=== PATIENT | male | born 1970 | race Caucasian/White ===

== ENCOUNTER 2018-08-31 10:32 | Inpatient (IN) | payer OTHER | END 2018-09-03 09:30 | disposition home or self-care (01) | LOC: YASAS 10:32 → Y6N 14:58 ==

== ENCOUNTER 2019-02-13 13:57 | Inpatient (IN) | payer OTHER ==
[2019-02-13 16:14] VITALS: BMI 22.4
--- NOTE | 2019-02-13 18:47 | HP ---
CIWA Score - Admission Criteria [facility]ASAS Guidelines: Admission for Medically Managed Detox: Requires at least one of the followin. CIWA greater than 12 2. Seizures within the past 24 hours 3. Delirium tremens within the past 24 hours 4. Hallucinations within the past 24 hours 5. Acute intervention needed for co occurring medical disorder 6. Acute intervention needed for co occurring psychiatric disorder 7. Severe withdrawal that cannot be handled at a lower level of care (continued vomiting, continued diarrhea, abnormal vital signs) requiring intravenous medication and/or fluids 8. Admitting History and Physical - Smoking History Smoking history: Current every day smoker Have you smoked in the past 12 months: Yes Aproximately how many cigarettes per day: 10 - Alcohol/Substance Use Hx Alcohol Use: No Admission ROS BHS - HPI Chief Complaint: cocaine use- here for rehab Allergies/Adverse Reactions: Allergies Allergy/AdvReac Type Severity Reaction Status Date / Time No Known Allergies Allergy Verified 02/13/19 16:07 History of Present Illness: 48 yo with no med problems, was last here about 4 months ago- detoxed from heroin and is now in a [facility]. Pt left for [facility]ia [facility] and when he returned to rehab- tox test pos for heroin and cocaine. pt was asked to come for detox and rehab. Pt only has cocaine in his urine today. Offered subxone treatment- pt refused, stating that he will get this at his rehab facility. the condition for being accepted back to his rehab is completion of rehab here. DUR_ no controlled substances - Ebola screening Have you traveled outside of the country in the last 21 days: No Have you had contact with anyone from an Ebola affected area: No Do you have a fever: No - Review of Systems Constitutional: No Symptoms Reported EENT: reports: No Symptoms Reported Respiratory: reports: No Symptoms reported Cardiac: reports: No Symptoms Reported GI: reports: No Symptoms Reported : reports: No Symptoms Reported Musculoskeletal: reports: No Symptoms Reported Integumentary: reports: No Symptoms Reported Neuro: reports: No Symptoms reported Endocrine: reports: No Symptoms Reported Hematology: reports: No Symptoms Reported Psychiatric: reports: No Sypmtoms Reported Other Systems: Reviewed and Negative Patient History - Patient Medical History Hx Anemia: No Hx Asthma: No Hx Chronic Obstructive Pulmonary Disease (COPD): No Hx Cancer: No Hx Cardiac Disorders: No Hx Congestive Heart Failure: No Hx Hypertension: No Hx Hypercholesterolemia: No Hx Pacemaker: No HX Cerebrovascular Accident: No Hx Seizures: No Hx Dementia: No Hx Diabetes: No Hx Gastrointestinal Disorders: No Hx Liver Disease: No Hx Genitourinary Disorders: No Hx Sexually Transmitted Disorders: No Hx Renal Disease (ESRD): No Hx Thyroid Disease: No Hx Human Immunodeficiency Virus (HIV): No (last 07/28/18 negative) Hx Hepatitis C: No Hx Depression: No Hx Suicide Attempt: No Hx Bipolar Disorder: No Hx Schizophrenia: No - Patient Surgical History Past Surgical History: No Hx Neurologic Surgery: Yes (Fractured skull at 2 years old) Hx Cataract Extraction: No Hx Cardiac Surgery: No Hx Lung Surgery: No Hx Breast Surgery: No Hx Breast Biopsy: No Hx Abdominal Surgery: No Hx Appendectomy: No Hx Cholecystectomy: No Hx Genitourinary Surgery: No Hx Section: No Hx Orthopedic Surgery: No Anesthesia Reaction: No - Smoking Cessation Smoking history: Current every day smoker Have you smoked in the past 12 months: Yes Aproximately how many cigarettes per day: 6 Cigars Per Day: 0 Hx Chewing Tobacco Use: No Initiated information on smoking cessation: Yes 'Breaking Loose' booklet given: 02/13/19 - Substances abused Heroin Substance route: Inhalation Frequency: Daily Amount used: 1 bags Age of first use: 12 Date of last use: 02/01/19 Admission Physical Exam BHS - Vital Signs Vital Signs: Vital Signs - 24 hr 02/13/19 02/13/19 16:08 17:38 Temperature 97.1 F L 97.1 F L Pulse Rate 71 71 Respiratory 20 20 Rate Blood Pressure 106/72 106/72 - Physical General Appearance: Yes: Within Normal Limits HEENTM: Yes: Within Normal Limits Respiratory: Yes: Within Normal Limits, Lungs Clear Neck: Yes: Within Normal Limits Cardiology: Yes: Within Normal Limits, Regular Rhythm, Regular Rate Abdominal: Yes: Within Normal Limits, Normal Bowel Sounds Genitourinary: Yes: Within Normal Limits Back: Yes: Within Normal Limits Musculoskeletal: Yes: Within Normal Limits Extremities: Yes: Within Normal Limits, Calf Tenderness Integumentary: Yes: Within Normal Limits - Diagnostic (1) Nicotine dependence Current Visit: No Status: Acute (2) Opioid dependence with withdrawal Current Visit: No Status: Acute Breathalyzer - Breathalyzer Breathalyzer: 0 Urine Drug Screen - Test Device Lot number: [id number] Expiration date: 11/07/20 - Control Is test valid?: Yes - Results Drug screen NEGATIVE: No Urine drug screen results: JAIME-Cocaine Inpatient Rehab Admission - Rehab Decision to Admit Inpatient rehab admission?: Yes - Initial Determination Are CD services needed?: Yes Free of communicable disease: Yes Not in need of hospitalization: Yes - Rehab Admission Criteria Previous failed treatment: Yes Poor recovery environment: Yes Comorbidities: Yes Lacks judgement: Yes Patient is meeting Inpatient Rehab admission criteria:: Yes (pt relapsed- currently in jail rehab)
[2019-02-13] MEDS ORDERED: MAG HYDROX/AL HYDROX/SIMETH 30 ML UNIT-DOSE CUP PO PRN (18:51)
[2019-02-13] MEDS ORDERED: MAGNESIUM CITRATE 300 ML BOTTLE PO PRN (18:51)
[2019-02-13] MEDS ORDERED: MAGNESIUM HYDROX 2400MG/30ML ORAL SUSPENSION 30 ML CUP PO PRN (18:51)
[2019-02-13] MEDS ORDERED: LOPERAMIDE HCL 2 MG CAPSULE PO PRN (18:51)
[2019-02-13] MEDS ORDERED: P-EPHED 60MG/TRIPROLIDI 2.5MG TABLET PO PRN (18:51)
[2019-02-13] MEDS ORDERED: guaiFENesin 200 MG/10 ML 10 ML UNIT-DOSE CUPS PO PRN (18:51)
[2019-02-13] MEDS ORDERED: hydrOXYzine PAMOATE 25 MG CAPSULE (FP) PO PRN (18:51)
[2019-02-13] MEDS ORDERED: NICOTINE POLACRILEX 2 MG GUM BC PRN (18:51)
[2019-02-13] MEDS ORDERED: IBUPROFEN 400 MG TABLET (FP) PO PRN (18:51)
[2019-02-13] MEDS ORDERED: MELATONIN 5 MG TABLETS PO PRN (22:00)
[2019-02-13] MEDS: THIAMINE HCL 100 MG TABLET (FP) PO SCH (22:42)
[2019-02-14] MEDS: PRENATAL VITAMINS W/ FOLIC ACID TABLET (FP) PO SCH (10:57)
[2019-02-14 11:55] LABS: HEMATOCRIT 44.2 % (35.4-49); MEAN CELL VOLUME 93.9 fl (80-96); MEAN PLT VOLUME 8.6 fl (7.5-11.1); PLATELET COUNT 209 K/MM3 (134-434); RDW 13.7 % (11.9-15.9); WHITE BLOOD COUNT 7.4 K/mm3 (4.0-10.0)
[2019-02-14] MEDS ORDERED: FLU VACCINE QUAD 60 MCG/0.5 ML (MDV 19-20) IM ONE (12:00)
[2019-02-14] MEDS ORDERED: PNEUMOC 13-VAL CONJ-DIP CRM/PF 0.5 ML DISP.SYRIN IM ONE (12:00)
[2019-02-14] MEDS ORDERED: PNEUMOCOCCAL 23 VACCINE 0.5 ML VIAL IM ONE (12:00)
[2019-02-14 12:02] LABS: ALBUMIN 3.8 g/dl (3.4-5.0); BILIRUBIN,TOTAL 0.4 mg/dL (0.2-1); BLOOD UREA NITROGEN 19.4 mg/dL (7-18); CALCIUM 9.1 mg/dL (8.5-10.1); CREATININE 1.3 mg/dL (0.55-1.3); POTASSIUM 4.4 mmol/L (3.5-5.1)
[2019-02-14 12:06] LABS: URINE APPEARANCE CLOUDY; URINE BILIRUBIN NEGATIVE (NEGATIVE); URINE COLOR YELLOW; URINE GLUCOSE (UA) NEGATIVE (NEGATIVE); URINE KETONE NEGATIVE (NEGATIVE); URINE LEUK ESTERASE NEGATIVE (NEGATIVE); URINE NITRITE NEGATIVE (NEGATIVE); URINE PROTEIN NEGATIVE (NEGATIVE)
--- NOTE | 2019-02-14 14:23 | PN ---
[facility] Progress Note Note: Pt is a 48 y/o male with a hx of WOODROW admitted to rehab from [facility] referred to rehab from his [facility] because "i picked up-used drugs". pt reports he has aprimary care provider Dr. Fagan at [address] [place] [address]. Pt denies PMHx or psych Hx. Vital Signs - 24 hr 02/13/19 02/13/19 02/13/19 16:08 17:38 19:29 Temperature 97.1 F L 97.1 F L 97.8 F Pulse Rate 71 71 67 Respiratory 20 20 18 Rate Blood Pressure 106/72 106/72 131/69 02/14/19 02/14/19 02/14/19 01:15 03:30 07:16 Temperature 97.3 F L Pulse Rate 67 Respiratory 18 18 18 Rate Blood Pressure 104/75 Laboratory Tests 02/14/19 02/14/19 02/14/19 07:55 07:55 08:30 WBC 7.4 RBC 4.70 Hgb 15.0 Hct 44.2 MCV 93.9 MCH 32.0 MCHC 34.0 RDW 13.7 Plt Count 209 MPV 8.6 Sodium 138 Potassium 4.4 Chloride 105 Carbon Dioxide 29 Anion Gap 4 L BUN 19.4 H Creatinine 1.3 Est GFR (CKD-EPI)AfAm 74.78 Est GFR (CKD-EPI)NonAf 64.52 Random Glucose 77 Calcium 9.1 Total Bilirubin 0.4 AST 20 ALT 28 Alkaline Phosphatase 83 Total Protein 7.0 Albumin 3.8 Urine Color Yellow Urine Appearance Cloudy Urine pH 7.0 D Ur Specific [place] 1.026 Urine Protein Negative Urine Glucose (UA) Negative Urine Ketones Negative Urine Blood Negative Urine Nitrite Negative Urine Bilirubin Negative Urine Urobilinogen 1.0 Ur Leukocyte Esterase Negative Alert o x 3 nad oob ambulating with steady gait. extremities/skin:no edema;skin intact A/P new rehab pt Maintain safety increase po fluids continue rehab.
[2019-02-14] MEDS: THIAMINE HCL 100 MG TABLET (FP) PO SCH (22:40)
[2019-02-15] MEDS: PRENATAL VITAMINS W/ FOLIC ACID TABLET (FP) PO SCH (10:56)
[2019-02-15] MEDS: THIAMINE HCL 100 MG TABLET (FP) PO SCH (22:30)
[2019-02-16] MEDS: PRENATAL VITAMINS W/ FOLIC ACID TABLET (FP) PO SCH (10:58)
[2019-02-16] MEDS: THIAMINE HCL 100 MG TABLET (FP) PO SCH (22:06)
[2019-02-17] MEDS: PRENATAL VITAMINS W/ FOLIC ACID TABLET (FP) PO SCH (11:07)
[2019-02-17] MEDS: THIAMINE HCL 100 MG TABLET (FP) PO SCH (22:21)
[2019-02-18] MEDS: MENTHOL/PHENOL 1 EACH UD MM PRN (06:26)
[2019-02-18] MEDS: PRENATAL VITAMINS W/ FOLIC ACID TABLET (FP) PO SCH (10:58)
[2019-02-18] MEDS: THIAMINE HCL 100 MG TABLET (FP) PO SCH (22:06)
[2019-02-19] MEDS: PRENATAL VITAMINS W/ FOLIC ACID TABLET (FP) PO SCH (10:32)
[2019-02-19] MEDS: MENTHOL/PHENOL 1 EACH UD MM PRN (22:10)
[2019-02-19] MEDS: THIAMINE HCL 100 MG TABLET (FP) PO SCH (22:10)
[2019-02-20] MEDS: MENTHOL/PHENOL 1 EACH UD MM PRN (11:55)
[2019-02-20] MEDS: PRENATAL VITAMINS W/ FOLIC ACID TABLET (FP) PO SCH (11:55)
[2019-02-20] MEDS: THIAMINE HCL 100 MG TABLET (FP) PO SCH (22:05)
[2019-02-21] MEDS: PRENATAL VITAMINS W/ FOLIC ACID TABLET (FP) PO SCH (11:04)
[2019-02-21] MEDS: THIAMINE HCL 100 MG TABLET (FP) PO SCH (22:20)
[2019-02-22] MEDS: PRENATAL VITAMINS W/ FOLIC ACID TABLET (FP) PO SCH (11:35)
[2019-02-22] MEDS: THIAMINE HCL 100 MG TABLET (FP) PO SCH (22:36)
[2019-02-23] MEDS: PRENATAL VITAMINS W/ FOLIC ACID TABLET (FP) PO SCH (10:03)
[2019-02-23] MEDS ORDERED: COLLOIDAL OATMEAL 1 BAR EACH TP PRN (12:48)
--- NOTE | 2019-02-23 12:49 | PN ---
[facility] Progress Note Note: Nurse Tiff called to report that pt c/o redness to cheeks,forehead and both shoulders after taking a shower this morning at about 11:00 a.m. Denied swelling to area or pharynx. Pt was seen and states "I take hot showers" and "it 's not there anymore'. Vital Signs - 24 hr 02/23/19 02/23/19 02/23/19 00:30 03:30 07:20 Temperature 97.3 F L Pulse Rate 60 Respiratory 18 18 18 Rate Blood Pressure 106/75 alert o x 3 nad oob ambulating with steady gait. Skin: no swellings, no redness noted. A/P Rehab patient c/o unspecified redness-not seen. Maintain safety
[2019-02-23] MEDS: THIAMINE HCL 100 MG TABLET (FP) PO SCH (21:58)
[2019-02-24] MEDS: PRENATAL VITAMINS W/ FOLIC ACID TABLET (FP) PO SCH (09:48)
[2019-02-24] MEDS: ACETAMINOPHEN 325 MG TABLET (FP) PO PRN (13:11)
[2019-02-24] MEDS: THIAMINE HCL 100 MG TABLET (FP) PO SCH (22:18)
[2019-02-25] MEDS: PRENATAL VITAMINS W/ FOLIC ACID TABLET (FP) PO SCH (11:11)
[2019-02-25] MEDS: ACETAMINOPHEN 325 MG TABLET (FP) PO PRN (21:43)
[2019-02-25] MEDS: THIAMINE HCL 100 MG TABLET (FP) PO SCH (21:43)
[2019-02-26] MEDS: PRENATAL VITAMINS W/ FOLIC ACID TABLET (FP) PO SCH (10:38)
[2019-02-26] MEDS: THIAMINE HCL 100 MG TABLET (FP) PO SCH (22:24)
[2019-02-27] MEDS: PRENATAL VITAMINS W/ FOLIC ACID TABLET (FP) PO SCH (10:47)
--- NOTE | 2019-02-27 14:51 | DS ---
[facility] Rehab Discharge Summary - [facility] Rehab Discharge Summary Admission Date: 02/13/19 Discharge Date: 02/28/19 - History Present History: Opioid dependence Additional Comments: pt is a 48 y/o male with a hx of WOODROW admitted to rehab and scheduled to discharge on 02/28/19. Pt has been referred to aftercare follow up with his current [facility] program on [address] [place], [place]. Pt plans to continue with his PCP Dr. Fagan for medical management after discharge. Pertinent Past History: denies PMHx denies psych Hx - Discharge Physical Exam Vital Signs: Vital Signs Temperature 97.1 F L 02/26/19 06:38 Pulse Rate 74 02/27/19 07:16 Respiratory Rate 18 02/27/19 07:16 Blood Pressure 112/72 02/27/19 07:16 O2 Sat by Pulse Oximetry (%) Alert o x 3 nad oob ambulating with steady gait cardiac:s1 s2,rrr lungs:cta,nile. abdomen:soft,+bs,nt,flat. extremities/skin:no edema;skin intact. Pertinent Admission Physical Exam Findings: Laboratory Tests 02/14/19 02/14/19 02/14/19 07:55 07:55 07:55 WBC 7.4 RBC 4.70 Hgb 15.0 Hct 44.2 MCV 93.9 MCH 32.0 MCHC 34.0 RDW 13.7 Plt Count 209 MPV 8.6 Sodium 138 Potassium 4.4 Chloride 105 Carbon Dioxide 29 Anion Gap 4 L BUN 19.4 H Creatinine 1.3 Est GFR (CKD-EPI)AfAm 74.78 Est GFR (CKD-EPI)NonAf 64.52 Random Glucose 77 Calcium 9.1 Total Bilirubin 0.4 AST 20 ALT 28 Alkaline Phosphatase 83 Total Protein 7.0 Albumin 3.8 Urine Color Urine Appearance Urine pH Ur Specific [place] Urine Protein Urine Glucose (UA) Urine Ketones Urine Blood Urine Nitrite Urine Bilirubin Urine Urobilinogen Ur Leukocyte Esterase RPR Titer Nonreactive 02/14/19 08:30 WBC RBC Hgb Hct MCV MCH MCHC RDW Plt Count MPV Sodium Potassium Chloride Carbon Dioxide Anion Gap BUN Creatinine Est GFR (CKD-EPI)AfAm Est GFR (CKD-EPI)NonAf Random Glucose Calcium Total Bilirubin AST ALT Alkaline Phosphatase Total Protein Albumin Urine Color Yellow Urine Appearance Cloudy Urine pH 7.0 D Ur Specific [place] 1.026 Urine Protein Negative Urine Glucose (UA) Negative Urine Ketones Negative Urine Blood Negative Urine Nitrite Negative Urine Bilirubin Negative Urine Urobilinogen 1.0 Ur Leukocyte Esterase Negative RPR Titer - Treatment Discharge Condition: Discharge condition good Hospital Course: Rehabilitated safely and responded well. CD aftercare accepted back to his referring program at [facility] Pt participated in group activities and individual sessions while in treatment. - Medication Discharge Medications: Ambulatory Orders Naloxone HCl [Narcan] 4 mg NS ONCE #1 spray 02/28/19 - Medication-Assisted Treatment (MAT) Medication-Assisted Treatment (MAT): No - Discharge Instructions Diet, activity, other medical instructions: Diet:Regular Activity: oob ad amy Other medical instructions:follow up with your PCP Dr. Fagan at [address] [place] [address]. follow up with CD aftercare with [facility] as scheduled. 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
[2019-02-27] MEDS: THIAMINE HCL 100 MG TABLET (FP) PO SCH (21:26)
[2019-02-28 08:12] VITALS: BP 119/84; PULSE 67; TEMP 97.8
[2019-02-28] MEDS: PRENATAL VITAMINS W/ FOLIC ACID TABLET (FP) PO SCH (09:24)
--- NOTE | 2019-02-28 09:59 | PN ---
S Progress Note Note: Pt was discharged today as scheduled. Vital Signs - 24 hr 02/28/19 02/28/19 00:30 08:11 Temperature 97.8 F Pulse Rate 67 Respiratory 18 18 Rate Blood Pressure 119/84 Alert o x 3, denies s/h/i nad oob ambulating with steady gait A/P Medically stable D/C pt today D/w/reminded pt to f/u with [facility] aftercare as scheduled and primary care with your PCP Dr. Fagan for medical management.
== END 2019-02-28 10:00 | disposition home or self-care (01) | DRG 772 ==
LOC: YASAS 13:57 → Y5N 18:55
PROVIDERS: ADMIT Neuromusculoskeletal Medicine & OMM; ATTEND Neuromusculoskeletal Medicine & OMM
PROC: HZ42ZZZ Group Counseling for Substance Abuse Treatment, Cognitive-Behavioral (ICD-10-PCS; principal; 2019-02-13)
DX: F11.20 Opioid dependence, uncomplicated (principal); F17.210 Nicotine dependence, cigarettes, uncomplicated
CPT/HCPCS: 36415; 80053; 81003; 85027; 86593; 90732; G0008; G0009; Q2036

== ENCOUNTER 2023-03-21 14:06 | Inpatient (IN) | payer OTHER ==
[2023-03-21 15:40] VITALS: BMI 18.3
[2023-03-21] MEDS ORDERED: NICOTINE POLACRILEX 2 MG GUM BUC PRN (16:10)
[2023-03-21] MEDS ORDERED: guaiFENesin 600 MG TABLET.ER (FP) PO PRN (16:10)
[2023-03-21] MEDS ORDERED: NALOXONE HCL 0.4 MG/ML VIAL IM PRN (16:10)
[2023-03-21] MEDS ORDERED: MAGNESIUM HYDROX 2400MG/30ML ORAL SUSPENSION 30 ML CUP PO PRN (16:10)
[2023-03-21] MEDS ORDERED: BENZOCAINE/MENTHOL (CHLORASEPTIC ) LOZENGE MM PRN (16:10)
[2023-03-21] MEDS ORDERED: NALOXONE HCL (KLOXXADO) 8 MG SPRAY NS PRN (16:10)
[2023-03-21] MEDS ORDERED: POLYETHYLENE GLYCOL (HEALTHYLAX) 3350 17 GM PACKET PO PRN (16:10)
[2023-03-21] MEDS ORDERED: MAG HYDROX/AL HYDROX/SIMETH 30 ML UNIT-DOSE CUP PO PRN (16:10)
[2023-03-21] MEDS ORDERED: DICYCLOMINE HCL 10 MG CAPSULE PO PRN (16:10)
[2023-03-21] MEDS ORDERED: LOPERAMIDE HCL 2 MG CAPSULE PO PRN (16:10)
[2023-03-21] MEDS ORDERED: IBUPROFEN 600 MG TABLET (FP) PO PRN (16:10)
[2023-03-21] MEDS ORDERED: IBUPROFEN 400 MG TABLET (FP) PO PRN (16:10)
[2023-03-21] MEDS ORDERED: ONDANSETRON *ODT* 4 MG TABLET SL PRN (16:10)
[2023-03-21] MEDS ORDERED: BISMUTH SUBSALICYLATE 524 MG/30 ML PO PRN (16:10)
[2023-03-21] MEDS ORDERED: BENZONATATE 200 MG CAPSULE PO PRN (16:10)
[2023-03-21] MEDS ORDERED: ACETAMINOPHEN 325 MG TABLET (FP) PO PRN (16:10)
[2023-03-21] MEDS ORDERED: diazePAM 5 MG TABLET PO PRN (16:12)
[2023-03-21] MEDS: TRIMETHOBENZAMIDE HCL 200MG/2ML INJ IM ONE (18:06)
[2023-03-21] MEDS ORDERED: TRIMETHOBENZAMIDE HCL 200MG/2ML INJ IM ONE (18:18)
[2023-03-21] MEDS: methaDONE HCL 10 MG TABLET (FOR DETOX USE ONLY) PO ONE (19:33)
[2023-03-21] MEDS: MELATONIN 5 MG TABLETS PO SCH (23:35)
[2023-03-21] MEDS: THIAMINE HCL 100 MG TABLET (FP) PO SCH (23:35)
[2023-03-22] MEDS: PRENATAL VITAMINS W/ FOLIC ACID TABLET (FP) PO SCH (10:27)
[2023-03-22] MEDS: amLODIPine BESYLATE 10 MG TABLET (FP) PO SCH (10:27)
[2023-03-22 11:16] LABS: HEMOGLOBIN 11.2 GM/dL (11.7-16.9); MCH 30.2 pg (25.7-33.7); MEAN CELL VOLUME 91.7 fl (80-96); MEAN PLT VOLUME 7.6 fl (7.5-11.1); PLATELET COUNT 375 10^3/uL (134-434); RBC 3.71 M/mm3 (4.00-5.60); RDW 15.8 % (11.9-15.9); WHITE BLOOD COUNT 5.7 K/mm3 (4.0-10.0)
[2023-03-22 11:18] LABS: POTASSIUM 3.1 mmol/L (3.5-5.1)
[2023-03-22 11:31] LABS: ALBUMIN 2.8 g/dl (3.4-5.0); BLOOD UREA NITROGEN 19.3 mg/dL (7-18)
[2023-03-22 11:34] LABS: CREATININE 1.1 mg/dL (0.55-1.3)
[2023-03-22 11:36] LABS: BILIRUBIN,TOTAL 0.6 mg/dL (0.2-1)
[2023-03-22] MEDS: POTASSIUM CHLORIDE ORAL LIQUID 20 MEQ/15 ML PO ONE ×2 (20:36)
[2023-03-22] MEDS: METHOCARBAMOL 500 MG TABLET PO PRN (22:20)
[2023-03-22] MEDS: cloNIDine HCL 0.1 MG TABLET PO PRN (22:20)
[2023-03-23] MEDS: methaDONE HCL 10 MG TABLET (FOR DETOX USE ONLY) PO ONE (10:21)
[2023-03-25] MEDS: methaDONE HCL 10 MG TABLET (FOR DETOX USE ONLY) PO ONE (10:23)
[2023-03-25] MEDS: LISINOPRIL 5 MG TABLET PO SCH (10:23)
[2023-03-26 06:36] VITALS: BP 144/80; PULSE 61; RESP 16; TEMP 97.7
== END 2023-03-26 09:20 | disposition other institution (70) | DRG 773 ==
LOC: YASAS 14:06 → Y6N 17:00
PROVIDERS: ADMIT Allergy & Immunology; ATTEND Surgery
PROC: HZ2ZZZZ Detoxification Services for Substance Abuse Treatment (ICD-10-PCS; principal; 2023-03-21)
DX: F11.23 Opioid dependence with withdrawal (principal); F14.20 Cocaine dependence, uncomplicated; F12.20 Cannabis dependence, uncomplicated; F17.210 Nicotine dependence, cigarettes, uncomplicated; F19.282 Other psychoactive substance dependence with psychoactive substance-induced sleep disorder; E87.6 Hypokalemia; I10 Essential (primary) hypertension; Z56.0 Unemployment, unspecified; Z59.00 Homelessness unspecified
CPT/HCPCS: 36415; 80053; 84132; 85027; 86780; 87635; 93005; 93010

== ENCOUNTER 2023-06-18 16:21 | Inpatient (IN) | payer OTHER ==
[2023-06-18 17:07] VITALS: RESP 18
[2023-06-18 17:27] LABS: BASO % 0.6 % (0-2.0); EOS % 1.1 % (0-4.5); HEMATOCRIT 34.3 % (35.4-49); HEMOGLOBIN 11.1 GM/dL (11.7-16.9); LYMPH % 8.7 % (8-40); MCH 29.8 pg (25.7-33.7); MCHC 32.4 g/dl (32.0-35.9); MEAN CELL VOLUME 91.9 fl (80-96); MEAN PLT VOLUME 6.9 fl (7.5-11.1); NEUT % 82.6 % (42.8-82.8); PLATELET COUNT 330 10^3/uL (134-434); RBC 3.73 M/mm3 (4.00-5.60); RDW 14.9 % (11.9-15.9); WHITE BLOOD COUNT 14.4 K/mm3 (4.0-10.0)
[2023-06-18] MEDS: ACETAMINOPHEN 1000 MG/100 ML BAG IVPB ONE (17:46)
[2023-06-18] MEDS: SODIUM CHLORIDE 0.9% 500 ML INFUS.BAG IV ONE (17:46)
[2023-06-18 17:48] LABS: POTASSIUM 3.4 mmol/L (3.5-5.1)
[2023-06-18 17:50] LABS: ALBUMIN 3.3 g/dl (3.4-5.0); CALCIUM 8.3 mg/dL (8.5-10.1)
[2023-06-18] MEDS ORDERED: VANCOMYCIN 1 GRAM (PRE-DOCKED) 1,000 MG/250 ML BAG IVPB ONE (17:51)
[2023-06-18] MEDS ORDERED: PIPERACILLIN/TAZOB 4.5 GM 4.5 GM/100 ML BAG IVPB ONE (17:51)
[2023-06-18 17:52] LABS: BLOOD UREA NITROGEN 20.5 mg/dL (7-18)
[2023-06-18 17:55] LABS: BILIRUBIN,TOTAL 0.5 mg/dL (0.2-1); TOT PROT 6.9 g/dl (6.4-8.2)
[2023-06-18] MEDS: PIPERACILLIN/TAZOB 4.5 GM 4.5 GM in DEXTROSE 5%-WATER 100 ML IVPB ONE (17:56)
[2023-06-18] MEDS: VANCOMYCIN 1,000 MG in DEXTROSE 5%-WATER - 250 ML IVPB ONE (18:05)
[2023-06-18] MEDS ORDERED: POTASSIUM CHLORIDE ORAL LIQUID 20 MEQ/15 ML ONE (18:06)
[2023-06-18] MEDS: POTASSIUM CHLORIDE ORAL LIQUID 20 MEQ/15 ML PO ONE ×2 (18:10→18:49)
[2023-06-18 18:16] LABS: SYPHILIS W/ RPR CONF NON-REACTIVE (NONREACTIVE)
[2023-06-18 18:23] LABS: ERYTHROCYTE SEDIMENTATION RATE 58 mm/hr (0-20)
[2023-06-18 18:44] LABS: HIV INTERPRETATION NEGATIVE (NEGATIVE)
[2023-06-18 19:57] LABS: METHADONE, UR NEGATIVE (NEGATIVE)
[2023-06-18 19:58] LABS: PHENCYCLIDINE,URINE NEGATIVE (NEGATIVE); URINE AMPHETAMINES NEGATIVE (NEGATIVE); URINE BARBITURATES NEGATIVE (NEGATIVE); URINE BENZODIAZEPINES NEGATIVE (NEGATIVE)
[2023-06-18 20:02] LABS: COCAINE, UR POSITIVE (NEGATIVE); OPIATES, URI POSITIVE (NEGATIVE)
[2023-06-18 22:41] LABS: PH,URINE 5.5 (5.0-8.0); URINE APPEARANCE CLOUDY; URINE BILIRUBIN NEGATIVE (NEGATIVE); URINE COLOR YELLOW; URINE GLUCOSE (UA) NEGATIVE (NEGATIVE); URINE KETONE TRACE (NEGATIVE); URINE LEUK ESTERASE NEGATIVE (NEGATIVE); URINE NITRITE NEGATIVE (NEGATIVE); URINE PROTEIN TRACE (NEGATIVE)
[2023-06-19] MEDS ORDERED: morphine CARPU-JECT 4 MG/1 ML DISP.SYRIN IVPUSH PRN (01:07)
[2023-06-19] MEDS ORDERED: ACETAMINOPHEN 1000 MG/100 ML BAG IVPB PRN (01:25)
[2023-06-19] MEDS ORDERED: KETOROLAC TROMETHAMINE 30 MG/1 ML VIAL IVPUSH PRN (01:33)
[2023-06-19 02:29] VITALS: BMI 19.5
[2023-06-19] MEDS: PIPERACILLIN/TAZOB 3.375 GM 3.375 GM in DEXTROSE 5%-WATER - 50 ML IVPB SCH ×2 (02:55→17:33)
[2023-06-19] MEDS: methaDONE HCL 10 MG TABLET PO ONE (03:50)
[2023-06-19] MEDS: LACTATED RINGERS SOLUTION 1,000 ML/1,000 ML INFUS.BAG IV SCH (03:56)
[2023-06-19 08:16] LABS: HEMATOCRIT 32.1 % (35.4-49); HEMOGLOBIN 10.4 GM/dL (11.7-16.9); MCH 29.9 pg (25.7-33.7); MCHC 32.4 g/dl (32.0-35.9); MEAN CELL VOLUME 92.1 fl (80-96); MEAN PLT VOLUME 7.4 fl (7.5-11.1); PLATELET COUNT 304 10^3/uL (134-434); RBC 3.49 M/mm3 (4.00-5.60); RDW 15.1 % (11.9-15.9); WHITE BLOOD COUNT 12.1 K/mm3 (4.0-10.0)
[2023-06-19 08:33] LABS: POTASSIUM 3.9 mmol/L (3.5-5.1)
[2023-06-19 08:35] LABS: BLOOD UREA NITROGEN 15.8 mg/dL (7-18); CALCIUM 7.7 mg/dL (8.5-10.1); MAGNESIUM 1.7 mg/dL (1.8-2.4)
[2023-06-19 08:38] LABS: CREATININE 0.9 mg/dL (0.55-1.3)
[2023-06-19 08:40] LABS: BILIRUBIN,TOTAL 0.6 mg/dL (0.2-1); TOT PROT 5.8 g/dl (6.4-8.2)
[2023-06-19 08:45] LABS: ALBUMIN 2.5 g/dl (3.4-5.0)
[2023-06-19] MEDS: MAGNESIUM OXIDE 400 MG TABLET (FP) PO ONE (09:36)
[2023-06-19] MEDS: ENOXAPARIN NA (PORCINE) 40 MG/0.4 ML DISP.SYRIN SQ SCH (09:37)
[2023-06-19] MEDS: ONDANSETRON 4 MG/2 ML VIAL IVPUSH PRN (13:00)
[2023-06-19] MEDS: VANCOMYCIN/WATER FOR INJ (PEG) 1,000 MG/200 ML BAG IVPB SCH (14:30)
[2023-06-19] MEDS: ACETAMINOPHEN 325 MG TABLET (FP) PO SCH (21:21)
[2023-06-20] MEDS ORDERED: PIPERACILLIN/TAZOB 3.375 GM 3.375 GM in DEXTROSE 5%-WATER - 50 ML IVPB SCH (03:00)
[2023-06-20 09:09] LABS: BASO % 0.2 % (0-2.0); EOS % 1.8 % (0-4.5); HEMATOCRIT 32.7 % (35.4-49); HEMOGLOBIN 10.8 GM/dL (11.7-16.9); MCH 30.2 pg (25.7-33.7); MCHC 32.9 g/dl (32.0-35.9); MEAN CELL VOLUME 91.7 fl (80-96); MEAN PLT VOLUME 7.2 fl (7.5-11.1); MONO % 4.7 % (3.8-10.2); NEUT % 86.3 % (42.8-82.8); PLATELET COUNT 331 10^3/uL (134-434); RBC 3.57 M/mm3 (4.00-5.60); RDW 15.2 % (11.9-15.9); WHITE BLOOD COUNT 11.3 K/mm3 (4.0-10.0)
[2023-06-20 09:26] LABS: POTASSIUM 4.1 mmol/L (3.5-5.1)
[2023-06-20 09:30] LABS: BLOOD UREA NITROGEN 10.2 mg/dL (7-18)
[2023-06-20 09:32] LABS: CALCIUM 8.2 mg/dL (8.5-10.1); MAGNESIUM 1.7 mg/dL (1.8-2.4)
[2023-06-20] MEDS: MAGNESIUM OXIDE 400 MG TABLET (FP) PO ONE (10:24)
[2023-06-21] MEDS: cloNIDine HCL 0.1 MG TABLET PO PRN (08:02)
[2023-06-21 08:33] LABS: BASO % 0.4 % (0-2.0); EOS % 3.6 % (0-4.5); HEMATOCRIT 35.5 % (35.4-49); HEMOGLOBIN 11.6 GM/dL (11.7-16.9); LYMPH % 12.2 % (8-40); MCH 30.1 pg (25.7-33.7); MCHC 32.8 g/dl (32.0-35.9); MEAN PLT VOLUME 7.4 fl (7.5-11.1); MONO % 5.8 % (3.8-10.2); PLATELET COUNT 372 10^3/uL (134-434); RBC 3.85 M/mm3 (4.00-5.60); RDW 15.2 % (11.9-15.9); WHITE BLOOD COUNT 9.7 K/mm3 (4.0-10.0)
[2023-06-21 08:56] LABS: POTASSIUM 4.4 mmol/L (3.5-5.1)
[2023-06-21 09:02] LABS: BLOOD UREA NITROGEN 12.1 mg/dL (7-18); CALCIUM 8.3 mg/dL (8.5-10.1)
[2023-06-21 09:03] LABS: MAGNESIUM 1.8 mg/dL (1.8-2.4)
[2023-06-21 09:05] LABS: PHOSPHOROUS 3.8 mg/dL (2.5-4.9)
[2023-06-21] MEDS: methaDONE HCL 10 MG TABLET PO ONE (11:05)
[2023-06-21] MEDS: LOSARTAN POTASSIUM 25 MG TABLET PO SCH (11:07)
[2023-06-21] MEDS: MAGNESIUM OXIDE 400 MG TABLET (FP) PO ONE (12:00)
[2023-06-21] MEDS ORDERED: ACETAMINOPHEN 1000 MG/100 ML BAG IVPB PRN (18:30)
[2023-06-21] MEDS: ACETAMINOPHEN 1000 MG/100 ML BAG IVPB ONE (18:50)
[2023-06-22 09:14] LABS: HEMATOCRIT 35.4 % (35.4-49); HEMOGLOBIN 11.6 GM/dL (11.7-16.9); MCH 30.1 pg (25.7-33.7); MCHC 32.7 g/dl (32.0-35.9); MEAN CELL VOLUME 92.1 fl (80-96); MEAN PLT VOLUME 6.9 fl (7.5-11.1); PLATELET COUNT 398 10^3/uL (134-434); RBC 3.84 M/mm3 (4.00-5.60); RDW 14.9 % (11.9-15.9); WHITE BLOOD COUNT 7.6 K/mm3 (4.0-10.0)
[2023-06-22] MEDS ORDERED: LOSARTAN POTASSIUM 25 MG TABLET PO SCH (09:24)
[2023-06-22] MEDS ORDERED: LOSARTAN POTASSIUM 50 MG TABLET PO SCH (09:25)
[2023-06-22 09:29] LABS: POTASSIUM 4.4 mmol/L (3.5-5.1)
[2023-06-22 09:39] LABS: ALBUMIN 2.6 g/dl (3.4-5.0); BLOOD UREA NITROGEN 15.1 mg/dL (7-18)
[2023-06-22 09:40] LABS: CALCIUM 8.6 mg/dL (8.5-10.1)
[2023-06-22 09:43] LABS: TOT PROT 6.5 g/dl (6.4-8.2)
[2023-06-22 09:44] LABS: BILIRUBIN,TOTAL 0.3 mg/dL (0.2-1)
[2023-06-22] MEDS: CHLORHEXIDINE GLUCONATE 4% CLEANSER FOR DECOLONIZATION TP SCH (22:45)
[2023-06-23] MEDS: LOSARTAN POTASSIUM 50 MG TABLET PO SCH (09:57)
[2023-06-23] MEDS: methaDONE HCL 10 MG TABLET PO ONE (09:57)
[2023-06-23] MEDS: SULFAMETHOXAZOLE/TRIMETHOPRIM 800MG/160MG D.S. TABLET PO SCH (21:15)
[2023-06-25 08:46] VITALS: BP 122/78; PULSE 72; TEMP 97.8
[2023-07-02 02:07] LABS: CHLAMYDIA PSITTACI IG-A AB <1:16 (.); CHLM TRACH DK-M <1:10 (.)
== END 2023-06-25 11:16 | disposition other institution (70) | DRG 383 ==
LOC: JER 16:21 → JERBED 23:44 → J6S 06-19 01:40
PROVIDERS: ADMIT Internal Medicine; ATTEND Internal Medicine
PROC: HZ2ZZZZ Detoxification Services for Substance Abuse Treatment (ICD-10-PCS; principal; 2023-06-18)
DX: L03.314 Cellulitis of groin (principal); L03.317 Cellulitis of buttock; E83.42 Hypomagnesemia; E87.6 Hypokalemia; F11.23 Opioid dependence with withdrawal; F19.10 Other psychoactive substance abuse, uncomplicated; I10 Essential (primary) hypertension; D64.9 Anemia, unspecified; E44.0 Moderate protein-calorie malnutrition; Z68.1 Body mass index [BMI] 19.9 or less, adult
CPT/HCPCS: 36415; 72193-TC; 80048; 80053; 80307; 81003; 82607; 82728; 82746; 83540; 83550; 83735; 84100; 84443; 85025; 85027; 85651; 86140; 86631; 86632; 86780; 87040; 87081; 87086; 87389; 87491; 87591; 93005; 93010; 99285-25; G0480; J0131; Q9967

== ENCOUNTER 2023-06-25 11:39 | Inpatient (IN) | payer OTHER ==
[2023-06-25 12:50] VITALS: BMI 19.9
[2023-06-25] MEDS ORDERED: ACETAMINOPHEN 325 MG TABLET (FP) PO PRN (12:55)
[2023-06-25] MEDS ORDERED: POLYETHYLENE GLYCOL (HEALTHYLAX) 3350 17 GM PACKET PO PRN (12:55)
[2023-06-25] MEDS ORDERED: NALOXONE HCL 0.4 MG/ML VIAL IVPUSH PRN (12:55)
[2023-06-25] MEDS ORDERED: NICOTINE POLACRILEX 2 MG GUM BUC PRN (12:55)
[2023-06-25] MEDS ORDERED: NALOXONE (NYS OPIOID OVERDOSE PROGRAM) 4 MG/0.1 ML SPRAY NS PRN (12:55)
[2023-06-25] MEDS ORDERED: NICOTINE POLACRILEX 2 MG LOZENGE BC PRN (12:55)
[2023-06-25] MEDS ORDERED: LOPERAMIDE HCL 2 MG CAPSULE PO PRN (12:55)
[2023-06-25] MEDS ORDERED: MAGNESIUM HYDROX 2400MG/30ML ORAL SUSPENSION 30 ML CUP PO PRN (12:55)
[2023-06-25] MEDS ORDERED: BENZOCAINE/MENTHOL (CHLORASEPTIC ) LOZENGE MM PRN (12:55)
[2023-06-25] MEDS ORDERED: IBUPROFEN 400 MG TABLET (FP) PO PRN (12:55)
[2023-06-25] MEDS ORDERED: MAG HYDROX/AL HYDROX/SIMETH 30 ML UNIT-DOSE CUP PO PRN (12:55)
[2023-06-25] MEDS ORDERED: guaiFENesin 600 MG TABLET.ER (FP) PO PRN (12:55)
[2023-06-25] MEDS ORDERED: BENZONATATE 200 MG CAPSULE PO PRN (12:55)
[2023-06-25] MEDS ORDERED: IBUPROFEN 600 MG TABLET (FP) PO PRN (12:55)
[2023-06-25] MEDS: MELATONIN 5 MG TABLETS PO SCH (22:24)
[2023-06-25] MEDS: SULFAMETHOXAZOLE/TRIMETHOPRIM 800MG/160MG D.S. TABLET PO SCH (22:24)
[2023-06-25] MEDS: THIAMINE 100 MG TABLET PO SCH (22:24)
[2023-06-26] MEDS: LOSARTAN POTASSIUM 50 MG TABLET PO SCH (09:18)
[2023-06-26] MEDS: PRENATAL VITAMINS W/ FOLIC ACID TABLET (FP) PO SCH (09:18)
[2023-06-26] MEDS: FLU VACCINE (FLULAVAL) PF 60 MCG/0.5 ML SYRINGE 2023-2024 IM ONE (12:37)
[2023-06-26] MEDS: hydrOXYzine PAMOATE 25 MG CAPSULE (FP) PO PRN (22:01)
[2023-06-26] MEDS: METHOCARBAMOL 500 MG TABLET PO PRN (22:01)
[2023-07-02] MEDS: MELATONIN 5 MG TABLETS PO SCH (22:32)
[2023-07-12 06:51] VITALS: BP 139/99; PULSE 80; RESP 18; TEMP 97.8
== END 2023-07-12 09:07 | disposition home or self-care (01) | DRG 772 ==
LOC: YASAS 11:39 → Y3NR 14:35 → Y5N 06-27 14:16
PROVIDERS: ADMIT Allergy & Immunology; ATTEND Psychiatry & Neurology Pain Medicine
PROC: HZ42ZZZ Group Counseling for Substance Abuse Treatment, Cognitive-Behavioral (ICD-10-PCS; principal; 2023-06-25)
DX: F11.20 Opioid dependence, uncomplicated (principal); F14.20 Cocaine dependence, uncomplicated; F12.20 Cannabis dependence, uncomplicated; F17.210 Nicotine dependence, cigarettes, uncomplicated; I10 Essential (primary) hypertension; L03.317 Cellulitis of buttock; L03.314 Cellulitis of groin; R63.4 Abnormal weight loss; Z68.1 Body mass index [BMI] 19.9 or less, adult
CPT/HCPCS: 80305; 82962; 87811; 90686; 93005; 93010; G0008